=== PATIENT | male | born 1980 | race African-American/Black ===

== ENCOUNTER 2017-11-13 23:15 | Emergency (ER) | payer BC ==
[~2017-11-13] VITALS: Ht 172.7 cm; Wt 104.7 kg
[2017-11-14 00:06] LABS: HEMATOCRIT 43.7 % (38.0-50.0); HEMOGLOBIN 14.7 G/DL (12.5-16.6); MCH 30.2 PG (29.0-34.0); MCHC 33.6 G/DL (30.0-36.0); MCV 89.9 FL (86-99); PLATELET COUNT 259 K/uL (156-360); RBC DIS.WIDTH-CV 12.6 % (11.8-14.6); RBC DIS.WIDTH-SD 41.9 % (39-53); RED BLOOD COUNT 4.86 M/uL (4.00-5.50); WHITE BLOOD COUNT 9.1 K/uL (4.1-10.2)
[2017-11-14 00:20] LABS: CHLORIDE 106 mEq/L (99-109); POTASSIUM 3.7 mEq/L (3.7-5.4); SODIUM 139 mEq/L (136-147)
[2017-11-14 00:21] LABS: GLUCOSE 137 mg/dL (70-99)
[2017-11-14 00:25] LABS: CREATININE 0.9 mg/dL (0.6-1.3); GFR ESTIMATE (CALCULATED) > 59 mL/min/ (58.99-99999)
[2017-11-14 00:26] LABS: UREA NITROGEN (BUN) 16 mg/dL (9-23)
[2017-11-14 00:28] LABS: LIPASE 16 U/L (1.0-51.0)
[2017-11-14 00:29] LABS: TROP-I INTERPRETATION NEGATIVE; TROPONIN-I < 0.01 ng/mL (0.0-0.30)
[2017-11-14 01:08] LABS: ALBUMIN 4.4 g/dL (3.2-4.8); D-DIMER ELISA < 150.00 ng/mLDDU (<230)
[2017-11-14 01:11] LABS: TOTAL PROTEIN 7.8 g/dL (6.4-8.3)
[2017-11-14 01:13] LABS: TOTAL BILIRUBIN 0.5 mg/dL (0.0-1.0)
[2017-11-14 01:14] LABS: ALKALINE PHOSPHATASE 102 IU/L (3-129)
[2017-11-14 01:16] LABS: AST (GOT) 29 IU/L (2-34)
[2017-11-14 01:17] LABS: ALT (GPT) 63 IU/L (3-49); DIRECT BILIRUBIN 0.2 mg/dL (0.0-0.3)
[2017-11-14 03:09] LABS: TROP-I INTERPRETATION NEGATIVE; TROPONIN-I < 0.01 ng/mL (0.0-0.30)
[2017-11-14] MEDS ORDERED: ZOFRAN ODT4 MG PO (04:59)
[2017-11-14] MEDS ORDERED: BENTYL20 MG PO (04:59)
[2017-11-14 05:10] VITALS: BP 143/82
== END 2017-11-14 05:12 | disposition home or self-care (01) ==
LOC: EME 23:15
PROVIDERS: Nurse Practitioner Family
DX: R07.9 Chest pain, unspecified (principal); R10.13 Epigastric pain; Z87.442 Personal history of urinary calculi
CPT/HCPCS: 71046; 74176; 80048; 80076; 83690; 84484; 85027; 85379; 93005; 99281; 99285; J2270; J7030